=== PATIENT | female | born 1955 | race Caucasian/White ===

== ENCOUNTER 2024-07-14 07:50 | Outpatient (CLI) | payer OTHER, MEDICARE, SELFPAY ==
--- OUTSIDE RECORDS SUMMARY | 2024-07-14 07:55 | XMS_ITS | Continuity of Care Document ---
Author Organization [facility] Address [address] [facility] [place] [address] Phone Care Team Providers Care Mimeographer Name Role Phone Will MD CARDOZO, Angel Unavailable Unavailabl e Allergies, Adverse Reactions, Alerts Substance Reaction Status Criticality erythromycin base Active No Informa tion BUSPIRONE HCL Active No Information SULFUR Active No Information cat dander Active No Information Medications Medication Instructions Dosage Effective Dates (start - stop) Status Comments Cymbalta 60 mg capsule,delayed release take 1.5 capsule by oral route every day 90 MG - Active atenolol 25 mg tablet take 1 tablet by o ral route every day 25 MG - Active Claritin 10 mg tablet take 1 tablet by o ral route every day 10 MG - Active timolol 5 mg tablet take 1 tablet by ora l route 3 times every day 5 MG - Active Alphagan P 0.1 % eye drops instill 1 drop by ophthalmic route every 8 hours into affected eye(s) 1.00 drop - Active latanoprost 0.005 % eye drops instill 1 drop by ophthalmic route every day into affected eye(s) in the evening 1.00 drop - Active Flovent HFA 110 mcg/actuation aerosol inhaler inhale 1 puff by inhalation route 2 times every day - Active Lantus U-100 Insulin 100 unit/mL subcutaneous solution inject by subcutaneous route as per insulin protocol 0.00 - Active Procedures Procedure Date OFFICE/OUTPATIENT VISIT, EST Drug test def 22+ classes Drug Urine Toxology With Chromatography OFFICE/OUTPATIENT VISIT, NEW Advance Directives Directive Yes / No Effective Date File Name No Information Encounters Encounter Description Practice Location Reason(s) For Visit Diagnoses Date Provider Providers Copied on Encounter [facility], [address], [place], [id number] , [place] tel:[phone] [facility] No Information 2 Cyrus Ortiz. [address] [place], [place], [id number] , [place]. tel:[phone] OFFICE/OUTPAT IENT VISIT, [facility], [address] [place] [address], [id number] , [place] tel:[phone] [facility] Back Pain (chief complaint) Chronic pain syndromeOther fci (current) drug therapy 9 Rita Frye. [address] [place] [address] [address], [place], [place], [id number] , [place]. tel:[phone] Referring Provider: Angel Gibbs, [address] [place] [address], [id number]. tel:[phone] OFFICE/OUTPAT IENT VISIT, [facility], [address] [place] [address], [id number] , [place] [phone] [facility] Back Pain (chief complaint) Chronic pain syndromeOther termite exterminator helper (current) drug therapyEncounter for therapeutic drug level monitoring 9 Nicole Puckett. [facility], [address] [facility] [address], [place], [address], [place]. tel:[phone] Referring Provider: [facility] [address] [facility] [address], [address]. tel:[phone] Family History Family Member Type Diagnosis Age At Onset No Information Payers Payer name Insurance type Covered democrat ID Rob torres(s) [facility] [id number] Medicare MB [id number] Social History Type Description Quantity Date Captured Comments Sex Female Smoking Status No Information Chief Complaint And Reason For Visit No Information Reason For Referral Reason For Referral No Information Plan Of Treatment Date Type Action Status Future Order: Lab Order COMPLIAN RAZ DRUG ANALYSIS, URINE, WITH MED REPORT ([id number]), Ordered on: Ordered Future Order: Lab Order Drug Anyi t Def 22+ Classes ([id number]), Ordered on: Ordered History Of Present Illness Encounter Date Complaint History Of Presamy nt Illness Back Pain Severity level i s 8. The problem is worsening. It occurs persistently. Location of pain is lower back, BL UE and R shoulder. Pain is radiated to the left calf, right calf, left foot and right foot.The patient describes the pain as an ache, burning, sharp and tingling. Symptoms are aggravated by ascending stairs, bending, descending stairs, running, sitting, standing, walking and prolonged positioning. Symptoms are relieved by lying down and pain meds/drugs. Back Pain (comments) Nasreen is he re today for a followup regarding her ongoing back pain. Would like to move forward with medical cannabis certification today. Patient is not accompanied today and has no further questions or other concerns. Back Pain Severity level i s 7. The problem is worsening. It occurs persistently. Location of pain is middle back, lower back, gluteal area, BL forearms and BL hands. Pain is radiated to the left ankle, right ankle, left calf, right calf, left foot and right foot.The patient describes the pain as burning, stabbing and pounding. Symptoms are aggravated by ascending stairs, bending, descending stairs, lifting, running, standing, twisting, walking and movement. Symptoms are relieved by heat, lying down, pain meds/drugs and rest. Back Pain (comments) Nasreen is he re for initial consult for back pain, arthritis, and diabetic neuropathy, referred by [facility]. H/o x2 lumbar fusions in 2007. Back pain gradually gotten worse, especially in the past year. Also c/o peripheral diabetic neuropathy with numbness and stabbing in BL feet. Newer numbness and tingling has developed in BL hands. Previous treatments include:Anticonvulsants: Gabapentin 600mg 1.5 tabs TID, cymbalta 90mg QDMuscle relaxants: Cyclobenzaprine.Anti-inflammatories: ibuprofen, naproxen.Opioids: tramadol, norco.Other: illicit cannabis-- helpful.PT: Lindsay in 2008 and [id number]-- not helpful.Surgeries: x2 lumbar fusions in 2007.Procedures: MAYO, RFA, nerve blocks at [facility].Diagnostics: MRI, CT, X-ray, EMG testing at [facility].Other: none.Nasreen is interested in medical cannabis and would like [facility] to assume management of pain care. Functional Status Date Functional Assessmen t No Information Instructions Date Instruction Additional Infor mation No Information Assessments Type Assessment Date No Information Patient Care Teams Name Effective Dates (start - stop) Status Members No Information
--- OUTSIDE RECORDS SUMMARY | 2024-07-14 07:56 | XMS_ITS | Clinical Summary ---
Author Organization [facility] Address [place], [place] [address] Care Team Providers Care Whistle Punk Name Role Phone Tiffanie Rios MD Primary Care Provider [phone] Elicia Tan Unavailable [phone] Terell Gonzalez NP Unavailable [phone] Allergies Active Allergy Reactions Criticality Noted Date Comments Sulfasalazine Intolerance-Can't Take 11/22/2007 severe headaches Hymenoptera Allergenic Extract 11/22/2007 Bupropion Behavioral Disturbances 04/02/2015 Buspirone Hcl Dizziness 08/14/2014 Cats (Fur, Dander, Saliva) Other - Describe In Comment Field 03/26/2015 Itchy watery Eyes, blotchy skin Erythromycin GI Upset 12/06/2006 Medications Medication Sig Dispensed Refills Start Date End Date Status lancets 33 gauge miscIndications:Diabet es mellitus, new onset (HC) As directed 1 box 2 times daily. For testing blood sugars at home. 100 Each 3 12/18/2013 Active EPINEPHrine (EPIPEN) 0.3 mg/0.3 mL injectionIndications:A llergy, sequela INJECT DIRECTED 2 Each 1 09/27/2016 Active brimonidine (ALPHAGAN) 0.2 % ophthalmic solution INT 1 GTT IN OU BID 02/07/2020 Active traZODone (DESYREL) 50 mg tablet TK 1 TO 2 TS PO HS 01/26/2020 Active eszopiclone (LUNESTA) 3 mg tablet Take 3 mg by mouth. 10/16/2020 Active CPAPIndications:AKUA (obstructive sleep apnea),Other insomnia CPAP machine for home use at pressure: 4 cmw , Heated humidifier x 1 q 5 yr, Humidifier chamber x 1 q 6 mo, nasal mask x1 q 3mos, with cushion x 2 q mo, Heated tubing x 1 q 3 mo, Headgear x 1 q 6 mo, Filters: Disposable x 2 q mo non-disposable filters x1 q 6mo, Length of Need: 99 months, Frequency of use: Daily 1 Device 11 03/11/2021 Active fluticasone (50 mcg per actuation) nasal solution (FLONASE)Indications:V iral URI Inhale 1 [place] to both nostrils 2 times daily. APPLY ONE SPRAY IN EACH NOSTRIL TWICE A DAY 48 g 11 06/20/2021 Active Additional Information Patient not taking.Reported on 06/21/2024 LORazepam (ATIVAN) 1 mg tablet TAKE 1 TABLET BY MOUTH NEEDED FOR SEVERE ANXIETY FOR 30 DAYS 07/25/2023 Active QUEtiapine (SEROQUEL) 100 mg tablet Take by mouth at bedtime. 07/26/2023 Active timoloL maleate (TIMOPTIC) 0.5 % ophthalmic solution PLACE 1 DROP IN BOTH EYES EVERY MORNING 05/25/2023 Active albuterol HFA (PRO-AIR; VENTOLIN; PROVENTIL) 90 mcg/actuation inhalerIndications:Cou gh, unspecified type Inhale 1-2 Puffs by mouth every 4 hours if needed (cough). 1 Each 09/11/2023 Active Additional Information Patient not taking.Reported on 06/21/2024 atorvastatin (LIPITOR) 40 mg tabletIndications:Mixe d hyperlipidemia Take 1 Tablet (40 mg) by mouth at bedtime. 90 Tablet 3 09/17/2023 Active DULoxetine (CYMBALTA) 30 mg Delayed-release capsule Take 30 mg by mouth once daily. 04/16/2024 Active DULoxetine (CYMBALTA) 60 mg Delayed-release capsule Take 60 mg by mouth once daily. 04/16/2024 Active latanoprost (XALATAN) 0.005 % ophthalmic solution Place 1 Drop into both eyes once daily in the evening. 02/15/2024 Active metFORMIN (GLUCOPHAGE XR) 500 mg Extended-Release tabletIndications:Type 2 diabetes mellitus without complication, without long-term current use of insulin (HC) Take 1 Tablet (500 mg) by mouth once daily. 90 Tablet 04/19/2024 Active valsartan-hydrochlorot hiazide (DIOVAN) 320-12.5 mg tabletIndications:Esse ntial hypertension Take 1 Tablet by mouth once daily. 90 Tablet 1 04/19/2024 Active glipiZIDE extended-release (GLUCOTROL XL) 10 mg Extended-Release tabletIndications:Type 2 diabetes mellitus without complication, without long-term current use of insulin (HC) TAKE 1 TABLET(10 MG) BY MOUTH EVERY DAY BEFORE A MEAL 60 Tablet 06/01/2024 Active omeprazole (PRILOSEC) 20 mg Delayed-Release capsuleIndications:[employer] Set[employer] hn's disease without complication, unspecified gastrointestinal tract location (HC),Nausea and vomiting, unspecified vomiting type,Gastroesophageal reflux disease, unspecified whether esophagitis present,Diarrhea, unspecified type,Lower abdominal pain Take 1 Capsule (20 mg) by mouth once daily before a meal. 90 Capsule 3 06/21/2024 Active polyethylene glycol-electrolyte (GOLYTELY) 236-22.74-6.74 -5.86 gram suspensionIndications: Encounter for screening colonoscopy Drink 6 liters the day before the procedure and 2 liters 6 hours prior to procedure. 8000 mL 07/04/2024 Active Active Problems Problem Noted Date Diagnosed Date Nail biting 10/13/2023 RLS (restless legs syndrome) 09/18/2023 Mixed hyperlipidemia 09/18/2023 History of stroke 09/18/2023 Bipolar disorder, mixed 09/18/2023 Pain management contract terminated 06/27/2021 Overview (06/27/2021): Compliance performed 07/01 positive for THC, negative for pain medication. Poor venous access 11/29/2019 Overview (11/29/2019): Recommend all procedures/CT at hospital Quadriceps weakness 12/05/2018 Tendinitis of left knee 12/05/2018 Adenomatous colon polyp 11/13/2016 Overview (04/06/2017): Colonoscopy 11/2016 multiple polyps, one polyp could not be removed, suboptimal prep, repeat colonoscopy with 2 gallon GoLYTELY prep at [facility] 3-6 months Colonoscopy 03/2017 polyps, repeat in 3 years, 2 gallon GoLYTELY prep at [facility] AKUA 05/01/2015 AHI-5.9 07/11/2015 Abnormal electroencephalogram (EEG) 04/25/2015 Type 2 diabetes mellitus wit hout complication, without long-term current use of insulin 10/11/2013 Generalized anxiety disorder 08/22/2013 Essential hypertension 08/26/2010 Crohn's disease 12/25/2009 CROHN'S DISEASE 12/06/2006 Migraine, unspecified, witho ut mention of intractable migraine without mention of status migrainosus 12/06/2006 Irritable bowel syndrome 12/06/2006 Gout, unspecified 12/06/2006 Degeneration of lumbar or lumbosacral interverte bral disc 12/06/2006 Resolved Problems Problem Noted Date Diagnosed Date Resolved Date COPD with chronic bronchitis 06/20/2021 04/20/2024 Pain management contract agreement 06/20/2021 06/27/2021 Overview (06/20/2021): norco 45 tabs last 2 months. Pain 12/05/2018 09/18/2023 Acute pain of left knee 12/05/201805/2023 Obstructive sleep apnea 05/23/201506/2023 Epileptic drop attack 04/25/20152022 Type II or unspecified type diabetes mellitus without mention of complication, not stated as uncontrolled 08/06/2014 09/17/2023 Type 2 diabetes mellitus 07/30/201404/2015 Pain medication agreement si gned and scanned 11/07/13 11/07/2013 06/20/2021 Overview (01/19/2020): Stable, compliant [place] 7.5-325, #30 tabs/month Major depressive disorder, r ecurrent episode, severe, without mention of psychotic behavior 08/22/2013 09/17/2023 Prediabetes 02/09/2013 09/16/2015 Major depressive disorder, r ecurrent episode, moderate 07/15/2010 09/17/2023 Intestinal infection due to Clostridium difficile 12/12/2009 09/18/2023 Other nonspecific abnormal c ardiovascular system function study 03/25/2008 03/25/2008 Dysthymic disorder 03/02/2008 3 Other postprocedural status(V45.89) 11/22/2007 09/17/2023 Depressive disorder, not elsewhere classified 12/06/19 07 02/03/2011 CYSTIC ACNE 12/06/2006 09/18/2023 Essential hypertension 12/06/200609/18 Encounters Date Type Department Care Team Description 07/13/2024 11:40 AM CDT Preop Visit [address] [address] Terrell Garcia MD Preoperative Exam (Colonoscopy at [facility] Dr. Grossman ) 07/13/2024 Travel 07/12/[address] [address] Tiffanie Rios MD Refill Request (Metformin) 07/07/2024 Orders Only [facility] [address] [place] [address] Sen Grossman MD <No scans attached> 07/04/2024 Telephone [facility] [address] [place] [address] Sen Grossman MD Results 06/29/2024 8:00 AM CDT Ancillary Procedure [facility] [address] [place] [address] 06/29/2024 Travel 06/26/2024 Travel 06/26/2024 Orders Only [facility] [address] [place] [address] Sen Grossman MD <No scans attached> 06/21/2024 1:00 PM CDT Office Visit [facility] [address] [place] [address] Sen Grossman MD Consult (Hx crohn's disease, diarrhea, abdominal cramping, acid reflux - worse in past few months, concerns for leaky gut) 06/21/2024 Travel 06/13/2024 Telephone [facility] [address] [place] [address] Sen Grossman MD Procedure (Colonoscopy ) 05/29/[address] [place] [address] Tiffanie Rios MD Refill Request (Glipizide Extended-release) 04/19/2024 5:15 PM CDT Ancillary Procedure [address] [address] 04/19/2024 3:40 PM CDT Office Visit [address] [address] Tiffanie Rios MD Diabetes; Pre-Op Exam (cataract surgery on 05-08) 04/19/2024 Travel from Last 3 Months Immunizations Name Administration Dates Next Due AMB Influenza, IIV3 (Age >=3 years)(Flu Clinic Only) 07/31/2011,07/16/2009,08/01/2008 Hepatitis B (Adult) 01/03/2002,05/27/2001,2000 Influenza Virus, Unspecified 07/16/2009,08/01/20 08,09/01/2006 Influenza, IIV3 (Age 6-35 mos) 07/31/2011 Influenza, IIV3 (Age >=3 years) 07/12/20 13,07/01/2012,08/20/2010,2008,08/01/2008,08/11/2007,09/01/2006 Influenza, IIV4 08/13/2020,,08/17/2018,2015 MMR 02/02/1990 Pneumococcal conj 13-Valent (Prevnar 13) 08/17/2018 Td (Age >=7 Years) 02/02/1990 Td, Preservative Free (age > = 7 Years) 03/29/2007 Tdap 08/17/2018,04/16/2008 Family History Medical History Relation Name Comments Hypertension Brother 3 GLAUCOMA Other Father COPD/[place]? Heart Disease Maternal Grandfather Heart Disease Maternal Grandmother Cancer Mother lung Diabetes Mother Hypertension Mother Other Mother MIGRAINES Heart Disease Paternal Grandfather Heart Disease Paternal Grandmother Cancer-breast No Family History Relation Name Status Comments Brother 1 Alive Brother 2 Alive Brother 3 Father Maternal Grandfather Maternal Grandmother Mother Paternal Grandfather Paternal Grandmother Son 1 Alive Son 2 Alive Son 3 Alive Social History Tobacco Use Types Packs/Day Years Used Date Smoking Tobacco: Former Cigarettes Q uit: 06/13/2012 Passive Smoke Exposure: Past Smokeless Tobacco: Never Tobacco Cessation:Counseling Given: Not Answered Alcohol Use Standard Drinks/Week Comments No 0 (1 standard drink = 0.6 oz pur e alcohol) PHQ-2 Answer Date Recorded PHQ-2 TOTAL SCORE 2 04/19/2024 Social Connections Answer Date Recorded Frequency of Communication with Friends and Fami ly Not on file 10/01/2021 Financial Resource Strain Answer Date R ecorded Difficulty of Paying Living Expenses Not on file 10/01/2021 Difficulty of Paying Living Expenses Not on file 10/01/2021 Sex and Gender Information Value Date Recorded Sex Assigned at Not on file Gender Identity Not on file Sexual Orientation Not on file Obstetrics History Para Term AB IAB SAB Ectopic Multiple Livin g Live Births 3 3 3 Date Outcome GA Total Labor Labor/2nd/3rd Weight Sex Type Anes PTL Fernanda A1 A5 Name Clin Para Para Para Last Filed Vital Signs Vital Sign Reading Time Taken Comments Blood Pressure 118/74 07/13/2024 11:57 AM CDT Pulse 110 07/13/2024 11:57 AM CDT Temperature 36.7 ??C (98.1 ??F) 07/13/2024 11:57 AM C DT Respiratory Rate 20 07/13/2024 11:57 AM CDT Oxygen Saturation 96% 07/13/2024 11:57 AM CDT Inhaled Oxygen Concentration - - Weight 98 kg (216 lb) 07/13/2024 11:57 AM CDT Height 175.3 cm (5' 9) 07/13/2024 11:57 AM CDT Body Mass Index 31.9 07/13/2024 11:57 AM CDT Plan of Treatment Upcoming Encounters Date Type Department Care Team (Late st Contact Info) Description 07/31/2024 3:00 PM CDT Office Visit [facility] [address] [facility] [place] [address] Tiffanie Rios MD [facility] [place] [id number] Health Maintenance Due Date Last Done Comments Zoster (shingles) series for age 50+ (1 of 2) 2006 Pneumococcal series for age 65+ (2 of 2 - PPSV23 or PCV20) 10/12/2018 08/17/2018 Mammogram for age 45-75 08/12/2019 08/12/20 18, 08/05/2017, 08/03/2017, Additional history exists Colonoscopy through age 75 04/02/202004/02, 04/02/2017, 11/04/2016, Additional history exists DEXA/DXA scan for age 65+ 2021 COVID-19 vaccine series ( - season) 2024 Influenza for age 65+ 06/11/2024 08/13/2020 , 09/19/2019, 08/17/2018, Additional history exists Depression screening for age 12+ 04/19/2025 04/19/2024, 07/30/2020, 01/24/2020, Additional history exists BMI (ht and wt on same day) for age 18+ 07/13/2025 07/13/2024, 04/19/2024, 06/20/2021, Additional history exists Tetanus booster 08/17/2028 08/17/2018, 04/2008, 03/29/2007, Additional history exists Lipids for age 45-75 11/10/2028 11/10/2023, 09/17/2023, 07/04/2018, Additional history exists Hepatitis C screening for ag e 18-79 Completed 07/04/2018 Tdap Completed 08/17/2018, 04/16/2008 Goals Goal Patient Goal Type Associated Problems Recent Progress Patient-Stated? Author BLOOD PRESSURE - MAINTAINS BP less than 140/90 Blood Pressure No Bakari Garcia MD Procedures Procedure Name Priority Date/Time Associated Diagnosis Comments CT ABDOMEN PELVIS ENTEROGRAPHY W Routine 06/29/2024 9:39 AM CDT Crohn's disease without complication, unspecified gastrointestinal tract location (HC) Nausea and vomiting, unspecified vomiting type Gastroesophageal reflux disease, unspecified whether esophagitis present Diarrhea, unspecified type Lower abdominal pain CLOSTRIDIOIDES DIFFICILE TOXIN PCR Routine 06/26/2024 10:19 AM CDT Crohn's disease without complication, unspecified gastrointestinal tract location (HC) Gastroesophageal reflux disease, unspecified whether esophagitis present Diarrhea, unspecified type Lower abdominal pain STOOL PATHOGEN MULTIPLEX PCR PANEL Routine 06/26/2024 10:19 AM CDT Crohn's disease without complication, unspecified gastrointestinal tract location (HC) Gastroesophageal reflux disease, unspecified whether esophagitis present Diarrhea, unspecified type Lower abdominal pain CALPROTECTIN, STOOL (QUEST) Routine 06/26/2024 10:19 AM CDT Crohn's disease without complication, unspecified gastrointestinal tract location (HC) Gastroesophageal reflux disease, unspecified whether esophagitis present Diarrhea, unspecified type Lower abdominal pain CWS PATH REVIEW HEMATOLOGY Routine 06/21/2024 2:00 PM CDT Crohn's disease without complication, unspecified gastrointestinal tract location (HC) Nausea and vomiting, unspecified vomiting type Gastroesophageal reflux disease, unspecified whether esophagitis present Diarrhea, unspecified type Lower abdominal pain RED CELL MORPHOLOGY Routine 06/21/2024 2 :00 PM CDT Crohn's disease without complication, unspecified gastrointestinal tract location (HC) Nausea and vomiting, unspecified vomiting type Gastroesophageal reflux disease, unspecified whether esophagitis present Diarrhea, unspecified type Lower abdominal pain PLATELET ESTIMATE Routine 06/21/2024 2:0 0 PM CDT Crohn's disease without complication, unspecified gastrointestinal tract location (HC) Nausea and vomiting, unspecified vomiting type Gastroesophageal reflux disease, unspecified whether esophagitis present Diarrhea, unspecified type Lower abdominal pain MANUAL DIFFERENTIAL Routine 06/21/2024 2 :00 PM CDT Crohn's disease without complication, unspecified gastrointestinal tract location (HC) Nausea and vomiting, unspecified vomiting type Gastroesophageal reflux disease, unspecified whether esophagitis present Diarrhea, unspecified type Lower abdominal pain CBC WITH AUTO DIFFERENTIAL Routine 06/21/2024 2:00 PM CDT Crohn's disease without complication, unspecified gastrointestinal tract location (HC) Nausea and vomiting, unspecified vomiting type Gastroesophageal reflux disease, unspecified whether esophagitis present Diarrhea, unspecified type Lower abdominal pain C-REACTIVE PROTEIN Routine 06/21/2024 2: 00 PM CDT Crohn's disease without complication, unspecified gastrointestinal tract location (HC) Nausea and vomiting, unspecified vomiting type Gastroesophageal reflux disease, unspecified whether esophagitis present Diarrhea, unspecified type Lower abdominal pain CBC WITH AUTO DIFFERENTIAL Routine 06/21/2024 2:00 PM CDT Crohn's disease without complication, unspecified gastrointestinal tract location (HC) Nausea and vomiting, unspecified vomiting type Gastroesophageal reflux disease, unspecified whether esophagitis present Diarrhea, unspecified type Lower abdominal pain COMP METABOLIC PANEL Routine 06/21/2024 2:00 PM CDT Crohn's disease without complication, unspecified gastrointestinal tract location (HC) Nausea and vomiting, unspecified vomiting type Gastroesophageal reflux disease, unspecified whether esophagitis present Diarrhea, unspecified type Lower abdominal pain XR CHEST 2 VIEWS PA AND LATERAL Routine 04/19/2024 5:24 PM CDT Chronic cough URINE ALBUMIN TO CREATININE RATIO, RANDOM Routine 04/19/2024 5:14 PM CDT Type 2 diabetes mellitus without complication, without long-term current use of insulin (HC) TSH WITH REFLEX Routine 04/19/2024 3:43 PM CDT Elevated TSH BASIC METABOLIC PANEL Routine 04/19/2024 3:43 PM CDT Type 2 diabetes mellitus without complication, without long-term current use of insulin (HC) HEMOGLOBIN A1C MONITORING (POCT) Patient wait 04/19/2024 3:43 PM CDT Type 2 diabetes mellitus without complication, without long-term current use of insulin (HC) LIPID PANEL W REFLEX MEASURED LDL Add On 11/10/2023 3:30 PM STRUCTURAL RIGGER Mixed hyperlipidemia XR MAMMO BILAT SCREENING Routine 08/12/2018 2:14 PM CDT Screening breast examination ANTI HCV Routine 07/04/2018 3:14 PM CDT Vasomotor instability COLONOSCOPY 04/02/2017 10:39 AM CDT from Last 3 Months or Most Recently Relevant to Health Maintenance Results * CT ABDOMEN PELVIS ENTEROGRAPHY W (06/29/2024 9:39 AM CDT) Anatomical Region Laterality Modality Abdomen, Pelvis, AORTA, LIVER, SPLEEN Computed Tomography 06/29/2024 3:54 PM CDT Narrative 06/29/2024 3:54 PM CDT For Patients: ??As a result of the Century Cures Act, medical imaging exams and procedure reports are released immediately into your electronic medical record. ??You may view this report before your referring provider. ??If you have questions, please contact your health care provider. Indication: Crohn`s disease Technique: CT ABDOMEN PELVIS ENTEROGRAPHY W Omnipaque 350 100 ML Please note that all CT scans at this facility use dose modulation, iterative reconstruction, and/or weight-based dosing when appropriate to reduce radiation dose to as low as reasonably achievable. Comparison: 08/01/2020 Findings: Linear subsegmental atelectasis within the right medial lung base. No pleural effusion. Fatty infiltration of the liver. Normal patency of the portal vein. Recanalization of the periumbilical vein. No ascites. Spleen measures 13.9 cm. Liver measures 19.0 cm. No adrenal nodule. No hydronephrosis. Pancreas normal. Gallbladder incompletely distended. No biliary obstruction. No intrahepatic mass. Small bowel loops appear unremarkable. The bladder is incompletely distended. Uterus unremarkable for age. No bowel obstruction. Postop changes to the anterior abdominal wall. Postop changes lumbar spine. No fracture. Impression: No evidence of acute inflammation within the abdomen or pelvis. No fistula or abscess. No bowel obstruction. Mild hepatosplenomegaly with diffuse hepatic steatosis and recanalization of the periumbilical vein. No ascites. Please note that all CT scans at this facility use dose modulation, iterative reconstruction, and/or weight-based dosing when appropriate to reduce radiation dose to as low as reasonably achievable. Dictated by Ramsey Wilson MD @ 06/29/2024 3:54:27 PM (Electronically Signed) Procedure Note Ramsey Wilson MD - 06/29/2024 For Patients: As a result of the 21st Century Cures Act, medical imagingexams and procedure reports are released immediately into your electronicmedical record. You may view this report before your referring provider.If you have questions, please contact your health care provider. Indication: Crohn`s disease Technique: CT ABDOMEN PELVIS ENTEROGRAPHY W Omnipaque 350 100 ML Please note that all CT scans at this facility use dose modulation,iterative reconstruction, and/or weight-based dosing when appropriate toreduce radiation dose to as low as reasonably achievable. Comparison: 08/01/2020 Findings: Linear subsegmental atelectasis within the right medial lung base. Nopleural effusion. Fatty infiltration of the liver. Normal patency of theportal vein. Recanalization of the periumbilical vein. No ascites. Spleenmeasures 13.9 cm. Liver measures 19.0 cm. No adrenal nodule. Nohydronephrosis. Pancreas normal. Gallbladder incompletely distended. Nobiliary obstruction. No intrahepatic mass. Small bowel loops appearunremarkable. The bladder is incompletely distended. Uterus unremarkablefor age. No bowel obstruction. Postop changes to the anterior abdominalwall. Postop changes lumbar spine. No fracture. Impression: No evidence of acute inflammation within the abdomen or pelvis. No fistulaor abscess. No bowel obstruction. Mild hepatosplenomegaly with diffuse hepatic steatosis and recanalizationof the periumbilical vein. No ascites. Please note that all CT scans at this facility use dose modulation,iterative reconstruction, and/or weight-based dosing when appropriate toreduce radiation dose to as low as reasonably achievable. Dictated by Ramsey Wilson MD @ 06/29/2024 3:54:27 PM (Electronically Signed) Sen Grossman MD CT * (ABNORMAL) CALPROTECTIN, STOOL ([facility]) (06/26/2024 10:19 AM CDT) CALPROTECTIN, STOOL 300(H) mcg/g [facility]/ daniel [facility] Joseph, Comment: ?Reference Range: ?<50 ? Normal ?50-120 ??Borderline ?>120 ?Elevated Calprotectin in Crohn's disease and ulcerative colitis can be five to several thousand times above the reference population (50 mcg/g or less). Levels are usually 50 mcg/g or less in healthy patients and with irritable bowel syndrome. Repeat testing in 4-6 weeks is suggested for borderline values. Stool STOOL SPECIMEN / Unknown 06/26/2024 10:19 AM CDT 06/26/2024 10:21 AM CDT Sen Grossman MD URINE [employer] [facility] [facility] [address] [place] [address], [employer] [facility], [address] [place] [address] * STOOL PATHOGEN MULTIPLEX PCR PANEL (06/26/2024 10:19 AM CDT) CAMPYLOBACTER GROUP NOT DETECTED NOT DETECTED [employer] [place] SALMONELLA SPECIES NOT DETECTED NOT DETECTED [employer] [place] SHIGELLA SPECIES NOT DETECTED NOT DETECTED [facility] [place] VIBRIO GROUP NOT DETECTED NOT DETECTED [facility] [place] YERSINIA ENTEROCOLITICA NOT DETECTED NOT DETECTED [facility] [place] SHIGA TOXIN 1 NOT DETECTED NOT DETECTED [facility] [place] SHIGA TOXIN 2 NOT DETECTED NOT DETECTED [facility] [place] NOROVIRUS GI/GII NOT DETECTED NOT DETECTED [facility] [place] ROTAVIRUS A NOT DETECTED NOT DETECTED [facility] [place] Comment: Organisms included in the Campylobacter group include C. coli, C. jejuni, and C. jose. Organisms included in the Shigella species include S. dysenteriae, S. boydii, S. sonnei, and S. flexneri. Organisms included in the Vibrio group include V. cholerae and V. parahaemolyticus. Stool STOOL SPECIMEN / Unknown 06/26/2024 10:19 AM CDT 06/26/2024 10:21 AM CDT Sen Grossman MD MICROBIOLOGY [employer] [facility] [address] [place] [address], [employer] [address] * CLOSTRIDIOIDES DIFFICILE TOXIN PCR (06/26/2024 10:19 AM CDT) CLOSTRIDIUM DIFFICILE TOXIN/GDH W/REFL TO PCR [employer]Christiane Carvajal Comment: ??CLOSTRIDIUM DIFFICILE TOXIN/GDH W/REFL TO PCR ?Micro Number: ?[id number] ??Test Status: ? Final ??Specimen Source: ?? Stool ??Specimen Quality: ??Inadequate ??GDH Antigen: ? Test not performed. Unformed stool required for ? testing. ??Toxin A and B: ? Test not performed. ? For additional information, please refer to ? [email or web address] ? (This link is being provided for ? informational/educational purposes only.) Stool STOOL SPECIMEN / Unknown 06/26/2024 10:19 AM CDT 06/26/2024 10:21 AM CDT Sen Grossman MD MICROBIOLOGY [facility] [address] [place] [address], [facility] [address] [place] [address] * CWS PATH REVIEW HEMATOLOGY (06/21/2024 2:00 PM CDT) Pathologist [facility] PATH COMMENT If the absolute lymphocytosis persists and/or is unexplained, consider peripheral blood morphology study for further evaluation. Reviewed by Lexie Rios MT, MS ([facility]) on 06/27/2024 06/28/2024 10:44 AM CDT [facility] LABORATORY-[facility] Blood BLOOD SPECIMEN / Unknown Venipuncture / Unknown 06/21/2024 2:00 PM CDT 06/21/2024 2:01 PM CDT Sen Grossman MD LABORATORY [facility] LAB[facility] [address] [place] [address], * CBC WITH AUTO DIFFERENTIAL (06/21/2024 2:00 PM CDT) [facility] WHITE BLOOD COUNT 10.7 4.5 - 11.0 thou/cu mm 06/21/2024 11:49 PM CDT [facility] RED BLOOD COUNT 4.42 4.00 - 5.20 mil/cu mm 06/21/2024 11:49 PM CDT [facility] HEMOGLOBIN 14.5 12.0 - 16.0 g/dL 06/21/2024 11:49 PM CDT [facility] HEMATOCRIT 41.9 33.0 - 51.0 % 06/21/2024 11:49 PM CDT [facility] MCV 95 80 - 100 fL 06/21/2024 11:49 PM CDT [facility] MCH 32.8 26.0 - 34.0 pg 06/21/2024 11:49 PM CDT [facility] MCHC 34.6 32.0 - 36.0 g/dL 06/21/2024 11:49 PM CDT [facility] RDW 12.8 11.5 - 15.5 % 06/21/2024 11:49 PM CDT [facility] PLATELET COUNT 169 140 - 440 thou/cu mm 06/21/2024 11:49 PM CDT [facility] MPV 10.5 6.5 - 11.0 fL 06/21/2024 11:49 PM CDT [facility] Blood BLOOD SPECIMEN / Unknown Venipuncture / Unknown 06/21/2024 2:00 PM CDT 06/21/2024 2:01 PM CDT Sen Grossman MD [facility] [address] [address], [address] [phone] * RED CELL MORPHOLOGY (06/21/2024 2:00 PM CDT) RBC COMMENT RBC morphology appears normal RBC morphology appears normal, RBC morphology within normal limits for newborns. 06/21/2024 11:49 PM CDT [facility] LABORATORY-CE NTRAL LABORATORY Blood BLOOD SPECIMEN / Unknown Venipuncture / Unknown 06/21/2024 2:00 PM CDT 06/21/2024 2:01 PM CDT Sen Grossman MD HEMATOLOGY [facility] LAB[facility]ATORYC[facility]AL LABORATORY [address] [place] [address], * PLATELET ESTIMATE (06/21/2024 2:00 PM CDT) PLATELET ESTIMATE Adequate Adequate, No estimate 06/21/2024 11:49 PM CDT [facility] LABORATORY-[facility] TRAL [facility]AT[facility] Blood BLOOD SPECIMEN / Unknown Venipuncture / Unknown 06/21/2024 2:00 PM CDT 06/21/2024 2:01 PM CDT Sen Grossman MD HEMATOLOGY [facility] LAB[facility] [address] [place] [address], * (ABNORMAL) MANUAL DIFFERENTIAL (06/21/2024 2:00 PM CDT) % NEUTROPHILS 37.7 % 06/21/2024 11:49 PM CDT [facility] TRAL LABORATORY % LYMPHOCYTES 52.5 % 06/21/2024 11:49 PM CDT [facility] TRAL LABORATORY % MONOCYTES 7.4 % 06/21/2024 11:49 PM CDT [facility] TRAL LABORATORY % EOSINOPHILS 0.8 % 06/21/2024 11:49 PM CDT [facility] TRAL LABORATORY % BASOPHILS 1.6 % 06/21/2024 11:49 PM CDT [facility] TRAL LABORATORY NEUTROPHILS ABSOLUTE 4.0 1.7 - 7.0 thou/cu mm 06/21/2024 11:49 PM CDT [facility] TRAL LABORATORY LYMPHOCYTES ABSOLUTE 5.6(H) 0.9 - 2.9 thou/cu mm 06/21/2024 11:49 PM CDT [facility] TRAL LABORATORY MONOCYTES ABSOLUTE 0.8 <0.9 thou/cu mm 06/21/2024 11:49 PM CDT [facility] TRAL LABORATORY EOSINOPHILS ABSOLUTE 0.1 <0.5 thou/cu mm 06/21/2024 11:49 PM CDT [facility] TRAL LABORATORY BASOPHILS ABSOLUTE 0.2 <0.3 thou/cu mm 06/21/2024 11:49 PM CDT [facility] TRAL LABORATORY Blood BLOOD SPECIMEN / Unknown Venipuncture / Unknown 06/21/2024 2:00 PM CDT 06/21/2024 2:01 PM CDT Sen Grossman MD HEMATOLOGY [facility] LABOR[facility] [address] [place] [address], * C-REACTIVE PROTEIN (06/21/2024 2:00 PM CDT) Pathologist [facility] C-REACTIVE PROTEIN 0.4 <0.5 mg/dL 06/22/2024 6:57 AM CDT [facility] LABORATORY Blood BLOOD SPECIMEN / Unknown Venipuncture / Unknown 06/21/2024 2:00 PM CDT 06/21/2024 2:01 PM CDT Sen Grossman MD CHEMISTRY [facility] LAB[facility] [address] [address], * (ABNORMAL) COMP METABOLIC PANEL (06/21/2024 2:00 PM CDT) Pathologist [facility] SODIUM 137 136 - 145 mmol/L 06/22/2024 6:57 AM CDT [facility] TRAL LABORATORY POTASSIUM 4.2 3.5 - 5.1 mmol/L 06/22/2024 6:57 AM CDT [facility] TRAL LABORATORY CHLORIDE 99 98 - 107 mmol/L 06/22/2024 6:57 AM T [facility] TRAL LABORATORY CO2,TOTAL 26 22 - 29 mmol/L 06/22/2024 6:57 AM CDT [facility] TRAL LABORATORY ANION GAP 12 5 - 18 06/22/2024 6:57 AM T [facility] TRAL LABORATORY GLUCOSE 238(H) 70 - 99 mg/dL 06/22/2024 6:57 AM T [facility] TRAL LABORATORY CALCIUM 9.8 8.8 - 10.2 mg/dL 06/22/2024 6:57 AM T [facility] TRAL LABORATORY BUN 12 8 - 23 mg/dL 06/22/2024 6:57 AM CDT [facility] TRAL LABORATORY CREATININE 1.13(H) 0.50 - 0.90 mg/dL 06/22/2024 6:57 AM T [facility] TRAL LABORATORY BUN/CREAT RATIO 11 10 - 20 6:57 AM CDT [facility] TRAL LABORATORY eGFR 53(L) >90 mL/min/1.7 3m2 06/22/2024 6:57 AM CDT [facility] TRAL LABORATORY Comment:As of 2021, eG FR is calculated by the CKD-EPI creatinine equation without race adjustment. ??eGFR can be influenced by muscle mass, exercise, and diet. ??The reported eGFR is an estimation only and is only applicable if the renal function is stable. ALBUMIN 4.2 4.0 - 4.9 g/dL 06/22/2024 6:57 AM CDT [facility] TRAL LABORATORY PROTEIN,TOTAL 7.1 6.0 - 8.0 g/dL 06/22/2024 6:57 AM CDT [facility] BILIRUBIN,TOTAL 0.7 0.0 - 1.2 mg/dL 06/22/2024 6:57 AM CDT [facility] ALK PHOSPHATASE 66 35 - 104 IU/L 06/22/2024 6:57 AM CDT [facility] ALT (SGPT) 29 10 - 35 IU/L 06/22/2024 6:57 AM CDT [facility] TRAL LABORATORY AST (SGOT) 45(H) 10 - 35 IU/L 06/22/2024 6:57 AM CDT [facility] Blood BLOOD SPECIMEN / Unknown Venipuncture / Unknown 06/21/2024 2:00 PM CDT 06/21/2024 2:01 PM CDT Sen Grossman MD CHEMISTRY [facility] [address] [place] [address], * XR CHEST 2 VIEWS PA AND LATERAL (04/19/2024 5:24 PM CDT) Anatomical Region Laterality Modality CHEST, THORAX, Lung, HEART Compu camilo Radiography 04/20/2024 6:42 AM CDT Impressions 04/20/2024 6:42 AM CDT Scarring right lung base and prominent scoliosis similar to the prior. No acute cardiopulmonary pathology. Dictated by Bernie East MD @ 04/20/2024 6:42:59 AM (Electronically Signed) Narrative 04/20/2024 6:42 AM CDT For Patients: ??As a result of the Cures Act, medical imaging exams and procedure reports are released immediately into your electronic medical record. ??You may view this report before your referring provider. ??If you have questions, please contact your health care provider. INDICATION: Chronic cough TECHNIQUE: Chest 2 views. COMPARISON: 09/11/2023 FINDINGS: Cardiovascular and mediastinum: Heart size and vasculature are normal in caliber and appearance. Mediastinum is within normal limits. Lungs and pleural spaces: Minimal linear scarring right lung base unchanged lungs are clear. No sign of infiltrate or mass. No sign of pleural effusion. No pneumothorax. Bones and soft tissues: Thoracic scoliosis. Procedure Note Js East MD - 04/20/2024 For Patients: As a result of the Cures Act, medical imagingexams and procedure reports are released immediately into your electronicmedical record. You may view this report before your referring provider.If you have questions, please contact your health care provider. INDICATION: Chronic cough TECHNIQUE: Chest 2 views. COMPARISON: 09/11/2023 FINDINGS: Cardiovascular and mediastinum: Heart size and vasculature are normal incaliber and appearance. Mediastinum is within normal limits. Lungs and pleural spaces: Minimal linear scarring right lung baseunchanged lungs are clear. No sign of infiltrate or mass. No sign ofpleural effusion. No pneumothorax. Bones and soft tissues: Thoracic scoliosis. IMPRESSION: Scarring right lung base and prominent scoliosis similar to the prior. Noacute cardiopulmonary pathology. Dictated by Bernie East MD @ 04/20/2024 6:42:59 AM (Electronically Signed) Tiffanie Rios MD GENERAL IMAGING * URINE ALBUMIN TO CREATININE RATIO, RANDOM (04/19/2024 5:14 PM CDT) ALB RAND URINE <12.0 mg/L 04/20/2024 1:18 PM CDT [facility] LABORATORY-[facility] TRAL LABORATORY CREATININE,URINE 0.91 g/L 04/20/20 24 1:18 PM CDT [facility] TRAL LABORATORY ALBUMIN TO CREATININE RATIO,RAND UR 04/20/2024 1:18 PM CDT [facility] TRAL LABORATORY Comment:Urine Albumin below measurement range, unable to calculate. Urine URINE SPECIMEN / Unknown Non-Blood / Unknown 04/19/2024 5:14 PM CDT 04/19/2024 5:15 PM CDT Narrative [facility] - 04/20/2024 1:18 PM CDT If Albumin to Creatinine Ratio is elevated, consider the following: ? Elevations seen with incipient nephropathy associated ?? with diabetes mellitus or hypertension. Stress, exercise,hematuria, ?? and urinary tract infection may also produce elevated results. If clinically indicated, confirm with ?24 Hour Albumin to Creatinine Ratio. ?? Tiffanie Rios MD URINE Performing Organization Address [facility] Co de Phone Number [facility] [address] [place], [place] [address] * TSH WITH REFLEX (04/19/2024 3:43 PM CDT) TSH 2.52 0.27 - 4.20 uIU/mL 04/19/2024 4:16 PM CDT [facility] Blood BLOOD SPECIMEN / Unknown Venipuncture / Unknown 04/19/2024 3:43 PM CDT 04/19/2024 3:46 PM CDT [facility] LABORATORY - 04/19/2024 4:16 PM CDT In Adults, TSH values between 5.00 and 10.00 uIU/ml do not necessarily indicate the presence of Hypothyroidism. Correlation with clinical findings such as presence of goiter and/or Thyroperoxidase (TPO) Antibody may be helpful. For more information please refer to BRIANNA 2004; 291: 228-238. Tiffanie Rios MD CHEMISTRY Performing Organization Address City/[facility]/ZIP Co de Phone Number [facility] [address] [place] [id number] * (ABNORMAL) HEMOGLOBIN A1C MONITORING (POCT) (04/19/2024 3:43 PM CDT) [facility] HEMOGLOBIN A1C MONITORING (POCT) 7.8(H) <=6.4 % 04/19/2024 3:53 PM CDT [facility] Blood BLOOD SPECIMEN / Unknown Venipuncture / Unknown 04/19/2024 3:43 PM CDT 04/19/2024 3:46 PM CDT Narrative [facility] - 04/19/2024 3:53 PM CDT ? (<=6.9%) ? Indicates good control ? (7.0% to 7.9%) ? Indicates fair control ? (>=8.0%) ? Indicates poor control ?? NOTE: ??These thresholds are guidelines and ?individual targets may vary. Falsely low levels may be seen with: Recent Transfusion, Recent Significant Blood Loss, Hemolytic Diseases, or Falsely elevated levels may be seen with: Untreated Anemias, Splenectomy ? Tiffanie Rios MD CHEMISTRY [facility] [address] [place] [address] * (ABNORMAL) BASIC METABOLIC PANEL (04/19/2024 3:43 PM CDT) [facility] SODIUM 138 136 - 145 mmol/L 04/19/2024 4:16 PM CDT [facility] POTASSIUM 3.8 3.5 - 5.1 mmol/L 04/19/2024 4:16 PM T [facility] CHLORIDE 100 98 - 107 mmol/L 04/19/2024 4:16 PM CDT [facility] CO2,TOTAL 26 22 - 29 mmol/L 04/19/2024 4:16 PM T [facility] ANION GAP 12 5 - 18 04/19/2024 4:16 PM T [facility] GLUCOSE 358(H) 70 - 99 mg/dL 04/19/2024 4:16 PM T [facility] CALCIUM 9.5 8.8 - 10.2 mg/dL 04/19/2024 4:16 PM T [facility] BUN 12 8 - 23 mg/dL 04/19/2024 4:16 PM [facility] CREATININE 0.98(H) 0.50 - 0.90 mg/dL 04/19/2024 4:16 PM T [facility] BUN/CREAT RATIO 12 10 - 4:16 PM T [facility] eGFR 63(L) >90 mL/min/1.7 3m2 04/19/2024 4:16 PM [facility] Comment:As of 2021, eG FR is calculated by the CKD-EPI creatinine equation without race adjustment. ??eGFR can be influenced by muscle mass, exercise, and diet. ??The reported eGFR is an estimation only and is only applicable if the renal function is stable. Blood BLOOD SPECIMEN / Unknown Venipuncture / Unknown 04/19/2024 3:43 PM CDT 04/19/2024 3:46 PM CDT Tiffanie Rios MD CHEMISTRY [facility] [address] [place] [address] * (ABNORMAL) LIPID PANEL W REFLEX MEASURED LDL (11/10/2023 3:30 PM STRUCTURAL RIGGER) CHOLESTEROL,TOTAL 133 100 - 199 mg/dL 11/10/2023 7:21 PM [facility] Comment: Cholesterol, Total Reference Ranges Desirable <200 mg/dL Borderline 200-239 mg/dL High >=240 mg/dL TRIGLYCERIDES 298(H) <150 mg/dL 11/10/2023 7:21 PM [facility] HDL CHOLESTEROL 51 >40 mg/dL 7:21 PM [facility] NON-HDL CHOLESTEROL 82 <145 mg/dl 11/10/2023 7:21 PM [facility] CHOL/HDL RATIO 2.61 <4.50 11/10/2023 7:21 PM [facility] LDL CHOLESTEROL 22 <=130 mg/dL 11/10/2023 7:21 PM [facility] VLDL CHOLESTEROL 60(H) <=30 mg/dL 11/10/2023 7:21 PM [facility] PROVIDER ORDERED STATUS RANDOM 11/10/2023 7:21 PM [facility] Blood BLOOD SPECIMEN / Unknown Venipuncture / Unknown 11/10/2023 3:30 PM STRUCTURAL RIGGER 11/10/2023 3:32 PM STRUCTURAL RIGGER Tiffanie Rios MD CHEMISTRY [facility] [address] [place] [address] * XR MAMMO BILAT SCREENING (08/12/2018 2:14 PM CDT) Anatomical Region Laterality Modality BREASTS, Breast Left, Breast Right Bilateral Mammography Impressions 08/15/2018 1:26 PM STRUCTURAL RIGGER ??There is no radiographic evidence for malignancy. ??Recommend annual mammograms. A lay language report of this examination will be provided to the patient. MAMMOGRAM ASSESSMENT: ??ACR 2 Benign Narrative 08/15/2018 1:26 PM STRUCTURAL RIGGER XR MAMMO BILAT SCREENING [[id number]] CLINICAL HISTORY: ??This is an asymptomatic 62 y.o. patient. INDICATION FOR EXAM: Mammogram Screening. TECHNIQUE: CC & MLO views were obtained. ??This digital study was evaluated with the assistance of Computer-Aided Detection. COMPARISON FILMS: Yes 08/03/17 [facility] DIAGNOSTIC IMAGING FINDINGS: ??Mammographically, the breast tissue has scattered fibroglandular densities. ??No suspicious masses or microcalcifications. ?? Benign appearing calcifications within both breasts. Bakari Garcia MD MAMMO * ANTI HCV (07/04/2018 3:14 PM CDT) HEPATITIS C ANTIBODY Non-React cj Non-React cj 07/04/2018 8:15 PM CDT [facility] Comment:Antibodies to HCV no t detected; does not exclude the possibility of exposure to HCV. Blood BLOOD SPECIMEN / Unknown Butterfly / Unknown 07/04/2018 3:14 PM CDT 07/04/2018 3:15 PM CDT Narrative Authorizing Provider Result Radha Garcia MD SEND OUTS [facility] LAB[facility] [address] [place] [address], [place] * COLONOSCOPY (04/02/2017 10:39 AM CDT) 04/02/2017 10:3 9 AM CDT Narrative Transcriptions Sen Grossman MD - 04/02/2017 1:16 PM CDT Patient Name: Nasreen Monteiro Procedure Date: 04/02/2017 Gender: Female Date of : 1955 Admit Type: Outpatient Procedure: Colonoscopy Proceduralist: Sen Grossman MD , Mariah Toledo (Nurse) Indications/Pre-Op Diagnosis: Surveillance: Personal history ofadenomatous polyps, inadequate prep on last colonoscopy (less than 1 year ago), Last colonoscopy: October 2016, Personal history of Crohn's disease Medications: Fentanyl 200 micrograms IV, Midazolam 4 mgIV, The level of sedation administered wasmoderate Procedure Description: The patient had risks, benefits and alternatives explained to andgave informed consent. The patient had a stable cardiopulmonary status and judged an adequate candidate for conscious sedation. The [id number] was passed through the anus and advanced tothe ileocolonic anastomosis. The colonoscopy was performed without difficulty. The patient tolerated the procedure well. The quality ofthe bowel preparation was good. The terminal ileum and the rectum were photographed. Complications: No immediate complications. Estimated Blood Loss & Specimen: Estimated blood loss: none. Specimen collected - Yes and sent to Laboratory Findings: A 4 mm polyp was found in the transverse colon. The polyp was pedunculated. The polyp was removed with a cold snare. Resection and retrieval were complete. Two pedunculated polyps were found in the descending colon. Thepolyps were 6 to 12 mm in size. These polyps were removed with a hot snare. Resection and retrieval were complete. The exam was otherwise without abnormality on direct and retroflexion views. Impressions/Post-Op Diagnosis: - One 4 mm polyp in the transverse colon, removed with a cold snare. Resected and retrieved. - Two 6 to 12 mm polyps in the descending colon, removed with a hot snare. Resected and retrieved. - The examination was otherwise normal on direct and retroflexionviews. Recommendation: - Patient has a contact number available for emergencies. The signsand symptoms of potential delayed complications were discussed with the patient. Return to normal activities tomorrow. Written discharge instructions were provided to the patient. - Continue present medications. - Await pathology results. - Repeat colonoscopy is recommended. The colonoscopy date will be determined after pathology results from today's exam become available for review. - For future colonoscopy the patient will require an extended preparation. If there are any questions, please contact the utility lineman. Moderate Sedation: Moderate (conscious) sedation was administered by the endoscopy nurse and supervised by the endoscopist. The following parameters were monitored: oxygen saturation, heart rate, respiratory rate, blood pressure, adequacy of pulmonary ventilation and reponse to care. [facility] flowsheets and nursing notes for moderate sedation details. Total physician intraservice time was 29 minutes. Sen Grossman MD 04/02/2017 1:16:38 PM This report has been signed electronically. Note Initiated On: 04/02/2017 10:39 AM Procedure Code(s): --- Professional --- 43465, Colonoscopy, flexible; with removalof tumor(s), polyp(s), or other lesion(s) bysnare technique Diagnosis Code(s): --- Professional --- Z86.010, Personal history of colonicpolyps D12.3, Benign neoplasm of transverse colon (hepatic flexure or splenic flexure) D12.4, Benign neoplasm of descending colon Z87.19, Personal history of other diseasesof the digestive system CPT copyright 2016 [employer]. All rights reserved. The codes documented in this report are preliminary and upon automatic drilling machine operator reviewmay be revised to meet current compliance requirements. Scope In: 11:19:14 AM Scope Withdrawal Time 0 hours 14 minutes 45 seconds Scope Out: 11:44:57 AM Sen Grossman MD PROCEDURE ORD from Last 3 Months or Most Recently Relevant to Health Maintenance Care Teams Whistle Punk Relationship Specialty Start Date End Date Tiffanie Rios MD [address] [facility] [place] [address] PCP - General Internal Medicine 09/17/23 Elicia Tan PA [address] [facility] [address] [place] [address] Physician Brazer Helper Induction 10/13/23 Terell Gonzalez NP [address] [facility] [place] [address] Nurse Practitioner - Mental Health 04/19/24
--- OUTSIDE RECORDS SUMMARY | 2024-07-14 07:56 | XMS_ITS | Clinical Summary ---
Author Organization [place] Address [address] [place] [address] Care Team Providers Care Principal Android Developer Name Role Phone Bakari Garcia Primary Care Provider [phone] Allergies No known active allergies Social History Tobacco Use Types Packs/Day Years Used Date Smoking Tobacco: Never Assessed Adolescent Education Answer Date Record ed Getting School Help Needed Not on file 07/19 Sex and Gender Information Value Date Recorded Sex Assigned at Not on file Gender Identity Not on file Sexual Orientation Not on file Plan of Treatment Not on file Care Teams Principal Android Developer Relationship Specialty Start Date End Date Bakari Garcia PCP - General Family Practice 08/24/17
--- OUTSIDE RECORDS SUMMARY | 2024-07-14 07:56 | XMS_ITS | Referral Summary ---
Author Organization [place] Address [address] [place] [address] Care Team Providers Care Utility Driver Name Role Phone Bakari Garcia Primary Care Provider [phone] Allergies No known active allergies Social History Tobacco Use Types Packs/Day Years Used Date Smoking Tobacco: Never Assessed Adolescent Education Answer Date Record ed Getting School Help Needed Not on file 07/19 Sex and Gender Information Value Date Recorded Sex Assigned at Not on file Gender Identity Not on file Sexual Orientation Not on file Plan of Treatment Not on file Care Teams Utility Driver Relationship Specialty Start Date End Date Bakari Garcia PCP - General Family Practice 08/24/17
--- NOTE | 2024-07-14 09:45 | W.ANESCHARGE ---
Anesthesia Charges Start Date/Time Anesthesia Start Date: 07/14/24 Anesthesia Start Time: 08:42 Stop Date/Time Anesthesia Stop Date: 07/14/24 Anesthesia Stop Time: 09:42
--- NOTE | 2024-07-14 11:20 | W.ANESCHARGE ---
Anesthesia Charges Start Date/Time Anesthesia Start Date: 07/14/24 Anesthesia Start Time: 08:42 Stop Date/Time Anesthesia Stop Date: 07/14/24 Anesthesia Stop Time: 09:42
== END 2024-07-14 07:51 | disposition home or self-care (01) ==
LOC: OP CLINIC 07:54
PROVIDERS: PCP Internal Medicine; Visit Provider Internal Medicine Gastroenterology
DX: Z12.11 Encounter for screening for malignant neoplasm of colon (principal); D12.3 Benign neoplasm of transverse colon; D12.4 Benign neoplasm of descending colon; D12.5 Benign neoplasm of sigmoid colon; Z86.0101 Personal history of adenomatous and serrated colon polyps; Z98.0 Intestinal bypass and anastomosis status
CPT/HCPCS: 00811; 45385; 88305; J2405; J2704